=== PATIENT | male | born 1940 | race Asian ===

== ENCOUNTER 2016-08-19 01:09 | Emergency (ER) | payer MEDICARE ==
[~2016-08-19] VITALS: Ht 154.9 cm; Wt 60.3 kg
[~2016-08-19 01:09] MED LIST: AMOX500C2 PO; CLAR500T PO; METR500T PO; OMEP20CA10 PO
[2016-08-19 01:11] VITALS: BP 148/80; PULSE 78; RESP 13; TEMP 98.2; O2SAT 96
--- NOTE | 2016-08-19 01:11 | NUR ---
Patient to ER bed 5 to gown for evaluation. Side rails up. Report given to ALYSSA LEWIS.
--- NOTE | 2016-08-19 01:16 | NUR ---
Patient BIB via BLS accompanied by with a complaint of dizziness x 2 hours. Patient AAO x 4, with a slight language barrier but able to understand and speak German. Blood sugar 108 at this time. No acute distress or SOB noted. Denies n/v/d or headache. No complaints of pain or discomfort at the time of arrival at ER.
--- NOTE | 2016-08-19 02:24 | NUR ---
ER at bedside examining patient.
[2016-08-19 02:54] LABS: BASOPHILS % (AUTO) 0.6 % (0.0-2.0); EOSINOPHILS # (AUTO) 0.3 K/uL (0.0-0.4); EOSINOPHILS % (AUTO) 5.2 % (0.0-4.0); HEMATOCRIT 41.3 % (36-54); HEMOGLOBIN 14.1 g/dL (14.0-18.0); LYMPHOCYTES # (AUTO) 1.8 K/uL (1.0-5.5); LYMPHOCYTES % (AUTO) 31.5 % (20.5-51.5); MEAN CORPUSCULAR HEMOGLOBIN 33 pg (27-31); MEAN CORPUSCULAR HGB CONC 34 % (32-36); MEAN CORPUSCULAR VOLUME 96 fL (79.0-98.0); MONOCYTES # (AUTO) 0.5 K/uL (0.0-1.0); MONOCYTES % (AUTO) 8.1 % (1.7-9.3); NEUTROPHILS % (AUTO) 54.6 % (40.0-70.0); PLATELET COUNT (AUTO) 169 K/uL (130-430); RED BLOOD CELL COUNT(AUTO) 4.29 MIL/uL (4.2-6.2); RED CELL DISTRIBUTION WIDTH 12.2 % (9.0-15.0); WHITE BLOOD COUNT (AUTO) 5.6 K/uL (4.8-10.8)
[2016-08-19 03:04] LABS: CHLORIDE 109 mmol/L (98-107); GLUCOSE 119 mg/dL (70-99); POTASSIUM 3.7 mmol/L (3.5-5.1); SODIUM SERUM 139 mmol/L (136-145); UREA NITROGEN, BLOOD 19 mg/dL (8-21)
[2016-08-19 03:06] LABS: PROTHROMBIN TIME 10.7 SECS (9.5-12.5)
[2016-08-19 03:07] LABS: ANION GAP < 3 (5-15)
--- NOTE | 2016-08-19 03:10 | NUR ---
Called [employer] for the patient and .
[2016-08-19 03:11] LABS: ALANINE AMINOTRANSFERASE 24 U/L (12-78); ALBUMIN 3.5 g/dL (3.4-4.8); ASPARTATE AMINOTRANSFERASE 20 U/L (10-37); CREATINE KINASE, TOTAL 98 U/L (39-308); TOTAL BILIRUBIN 0.5 mg/dL (0.0-1.0)
[2016-08-19 03:20] VITALS: BP 148/80; PULSE 78; RESP 13; TEMP 98.2; O2SAT 96
--- NOTE | 2016-08-19 03:20 | NUR ---
Patient given written and verbal discharge instructions and verbalizes understanding. Patient in stable condition. No acute distress or SOB noted upon discharge. ID arm band removed. Opportunity for questions provided and answered.
== END 2016-08-19 03:20 | disposition home or self-care (01) ==
LOC: SED 01:09
DX: R07.9 Chest pain, unspecified (principal); R42 Dizziness and giddiness; J45.909 Unspecified asthma, uncomplicated; F03.90 Unspecified dementia, unspecified severity, without behavioral disturbance, psychotic disturbance, mood disturbance, and anxiety; K21.9 Gastro-esophageal reflux disease without esophagitis
CPT/HCPCS: 36415; 80053; 82550-TC; 82962; 84484; 85025; 85610-TC; 85730-TC; 93005; 99285

== ENCOUNTER 2017-04-17 01:43 | Emergency (ER) | payer MEDICARE ==
[~2017-04-17] VITALS: Ht 157.5 cm; Wt 59.0 kg
[2017-04-17 01:47] VITALS: BP_SYST 162
[2017-04-17 02:29] LABS: BILIRUBIN,URINE NEGATIVE (NEGATIVE); BLOOD, URINE NEGATIVE (NEGATIVE); CLARITY/URINE CLEAR (CLEAR); COLOR,URINE YELLOW (YELLOW); GLUCOSE,URINE NEGATIVE (NEGATIVE); KETONES,URINE NEGATIVE (NEGATIVE); LEUKOCYTE ESTERASE ,URINE NEGATIVE (NEGATIVE); NITRITE, URINE NEGATIVE (NEGATIVE); PROTEIN URINE NEGATIVE (NEGATIVE); UROBILINOGEN,URINE 0.2 (0.2-1.0)
[2017-04-17 02:43] LABS: BASOPHILS % (AUTO) 0.6 % (0.0-2.0); EOSINOPHILS # (AUTO) 0.4 K/uL (0.0-0.4); HEMATOCRIT 42.4 % (36-54); HEMOGLOBIN 14.2 g/dL (14.0-18.0); LYMPHOCYTES # (AUTO) 1.6 K/uL (1.0-5.5); LYMPHOCYTES % (AUTO) 27.3 % (20.5-51.5); MEAN CORPUSCULAR HEMOGLOBIN 33 pg (27-31); MEAN CORPUSCULAR HGB CONC 33 % (32-36); MEAN CORPUSCULAR VOLUME 98 fL (79.0-98.0); MONOCYTES # (AUTO) 0.6 K/uL (0.0-1.0); MONOCYTES % (AUTO) 9.4 % (1.7-9.3); NEUTROPHILS # (AUTO) 3.3 K/uL (1.8-7.7); NEUTROPHILS % (AUTO) 55.7 % (40.0-70.0); PLATELET COUNT (AUTO) 161 K/uL (130-430); RED BLOOD CELL COUNT(AUTO) 4.33 MIL/uL (4.2-6.2); RED CELL DISTRIBUTION WIDTH 12.2 % (9.0-15.0); WHITE BLOOD COUNT (AUTO) 5.9 K/uL (4.8-10.8)
[2017-04-17 02:53] LABS: ANION GAP 5 (5-15); CHLORIDE 104 mmol/L (98-107); CREATININE 0.87 mg/dL (0.55-1.30); GLUCOSE 110 mg/dL (70-99); POTASSIUM 4.1 mmol/L (3.5-5.1); SODIUM SERUM 138 mmol/L (136-145); UREA NITROGEN, BLOOD 17 mg/dL (8-21)
[2017-04-17 02:55] LABS: PROTHROMBIN TIME 10.2 SECS (9.5-12.5)
[2017-04-17 02:58] LABS: ALANINE AMINOTRANSFERASE 31 U/L (12-78); ALBUMIN 3.6 g/dL (3.4-4.8); ASPARTATE AMINOTRANSFERASE 24 U/L (10-37); LIPASE 175 U/L (73-393); TOTAL BILIRUBIN 0.6 mg/dL (0.0-1.0)
[2017-04-17] MEDS ORDERED: ASPIRIN 81 MG TAB.CHEW PO ONE (04:00)
[2017-04-17 05:10] VITALS: BP_SYST 158
== END 2017-04-17 05:10 | disposition short-term general hospital (02) ==
LOC: SED 01:43
DX: R07.89 Other chest pain (principal); K21.9 Gastro-esophageal reflux disease without esophagitis; F03.90 Unspecified dementia, unspecified severity, without behavioral disturbance, psychotic disturbance, mood disturbance, and anxiety
CPT/HCPCS: 36415; 71010; 80053; 81003; 83690-TC; 83880; 84484; 85025; 85610-TC; 85730-TC; 93005; 99285

== ENCOUNTER 2017-11-30 01:39 | Emergency (ER) | payer MEDICARE ==
[~2017-11-30] VITALS: Ht 157.5 cm; Wt 55.3 kg
[2017-11-30 01:40] VITALS: BP_SYST 137
--- NOTE | 2017-11-30 01:40 | NUR ---
Patient to ER bed 4 to gown for evaluation. Side rails up.
--- NOTE | 2017-11-30 01:42 | NUR ---
ER MD Garcia at bedside evaluating the patient
[2017-11-30] MEDS ORDERED: PREDNISONE 20 MG TABLET PO ONE (01:45)
[2017-11-30] MEDS ORDERED: DIPHENHYDRAMINE HCL 25 MG CAPSULE PO ONE (01:45)
--- NOTE | 2017-11-30 01:45 | NUR ---
Patient brought to ER by [facility] ambulance from home C/O nasal congestion. Patient states that he woke up with severe nasal congestion. Per EMT on route, patient C/O pruritus on chest and back. Patient noted to have perioral swelling. Patient denies allergies, states "nothing to eat or drink anusual" AAOx4, unlabored breathing, no skin rash noted, no signs of acute distress.
--- NOTE | 2017-11-30 02:43 | NUR ---
Patient states that he feels much better, noted reduction in perioral swelling and minimal pruritus at this time.
[2017-11-30 03:09] VITALS: BP_SYST 130
== END 2017-11-30 03:09 | disposition home or self-care (01) ==
LOC: SED 01:39
DX: T78.40XA Allergy, unspecified, initial encounter (principal); J45.909 Unspecified asthma, uncomplicated; F03.90 Unspecified dementia, unspecified severity, without behavioral disturbance, psychotic disturbance, mood disturbance, and anxiety; K21.9 Gastro-esophageal reflux disease without esophagitis; Z79.899 Other long term (current) drug therapy
CPT/HCPCS: 99283; J7512; Q0163

== ENCOUNTER 2017-12-20 03:38 | Emergency (ER) | payer MEDICARE ==
[~2017-12-20] VITALS: Ht 154.9 cm; Wt 56.2 kg
[2017-12-20 03:40] VITALS: BP_SYST 146
--- NOTE | 2017-12-20 03:40 | NUR ---
Placed in room 8 . Placed on awake overnight monitor, blood pressure machine and pulse oximeter. To gown for exam. Side rails up.
--- NOTE | 2017-12-20 03:40 | NUR ---
Patient AAOx4, ambulatory. Patient states having a main complaint of sudden onset of diziness which started "earlier this morning" but has since subsided. Patient states having a mild headache prior to ER visit, which has also been resolved at this time. Patient denies shortness of breath, chest pain, loss of consciousness, and pain at this time. No signs of distress noted. Patient was able to ambulate with a steady gait and without assistance. Patient denies any other complaints.
--- NOTE | 2017-12-20 03:56 | NUR ---
ER Dr. Kuo at bedside examining patient.
[2017-12-20 04:50] VITALS: BP_SYST 140
--- NOTE | 2017-12-20 04:50 | NUR ---
Patient given written and verbal discharge instructions and verbalizes understanding. ER MD discussed with patient the results and treatment provided. Patient in stable condition. ID arm band removed. Patient educated on pain management and to follow up with PMD. Pain Scale 0/10. Opportunity for questions provided and answered.
== END 2017-12-20 03:40 | disposition home or self-care (01) ==
LOC: SED 03:38
DX: R42 Dizziness and giddiness (principal); J45.909 Unspecified asthma, uncomplicated; F03.90 Unspecified dementia, unspecified severity, without behavioral disturbance, psychotic disturbance, mood disturbance, and anxiety; K21.9 Gastro-esophageal reflux disease without esophagitis; Z79.899 Other long term (current) drug therapy
CPT/HCPCS: 99283

== ENCOUNTER 2018-02-28 00:50 | Emergency (ER) | payer MEDICARE ==
[~2018-02-28] VITALS: Ht 154.9 cm; Wt 59.9 kg
[2018-02-28 00:50] VITALS: BP_SYST 147
[2018-02-28] MEDS ORDERED: NACL 0.9% 1,000 ML IV ONE (00:57)
[2018-02-28] MEDS ORDERED: ASPIRIN 81 MG TAB.CHEW PO ONE (01:00)
[2018-02-28 01:41] LABS: BASOPHILS % (AUTO) 0.9 % (0.0-2.0); EOSINOPHILS # (AUTO) 0.6 K/uL (0.0-0.4); EOSINOPHILS % (AUTO) 10.1 % (0.0-4.0); HEMOGLOBIN 14.5 g/dL (14.0-18.0); LYMPHOCYTES % (AUTO) 36.1 % (20.5-51.5); MEAN CORPUSCULAR HEMOGLOBIN 32 pg (27-31); MEAN CORPUSCULAR HGB CONC 33 % (32-36); MEAN CORPUSCULAR VOLUME 98 fL (79.0-98.0); MONOCYTES # (AUTO) 0.5 K/uL (0.0-1.0); MONOCYTES % (AUTO) 8.7 % (1.7-9.3); NEUTROPHILS # (AUTO) 2.4 K/uL (1.8-7.7); NEUTROPHILS % (AUTO) 44.2 % (40.0-70.0); PLATELET COUNT (AUTO) 202 K/uL (130-430); RED CELL DISTRIBUTION WIDTH 13.1 % (9.0-15.0); WHITE BLOOD COUNT (AUTO) 5.5 K/uL (4.8-10.8)
[2018-02-28 01:44] LABS: ANION GAP 7 (5-15); CALCIUM 8.7 mg/dL (8.4-11.0); CHLORIDE 105 mmol/L (98-107); CREATININE 0.97 mg/dL (0.55-1.30); GLUCOSE 112 mg/dL (70-99); POTASSIUM 3.8 mmol/L (3.5-5.1); SODIUM SERUM 142 mmol/L (136-145); UREA NITROGEN, BLOOD 15 mg/dL (8-21)
[2018-02-28 01:52] LABS: ALANINE AMINOTRANSFERASE 41 U/L (12-78); ALBUMIN 3.4 g/dL (3.4-4.8); ASPARTATE AMINOTRANSFERASE 64 U/L (10-37); TOTAL BILIRUBIN 0.4 mg/dL (0.0-1.0)
[2018-02-28 06:10] VITALS: BP_SYST 148
== END 2018-02-28 06:08 | disposition home or self-care (01) ==
LOC: SED 00:50
DX: R09.81 Nasal congestion (principal); R05 Cough; K21.9 Gastro-esophageal reflux disease without esophagitis; J45.909 Unspecified asthma, uncomplicated; F03.90 Unspecified dementia, unspecified severity, without behavioral disturbance, psychotic disturbance, mood disturbance, and anxiety; Z79.899 Other long term (current) drug therapy; R03.0 Elevated blood-pressure reading, without diagnosis of hypertension
CPT/HCPCS: 36415; 71045; 80053; 84484; 85025; 85379; 93005; 99285; J7030

== ENCOUNTER 2018-03-27 02:45 | Emergency (ER) | payer MEDICARE ==
[~2018-03-27] VITALS: Ht 154.9 cm; Wt 56.2 kg
[2018-03-27 02:45] VITALS: BP_SYST 157
[2018-03-27] MEDS ORDERED: ASPIRIN 81 MG TAB.CHEW PO ONE (03:00)
--- NOTE | 2018-03-27 03:00 | NUR ---
Patient to ER bed 6 to gown for evaluation. Side rails up. Report given from ALYSSA Nicholson.
--- NOTE | 2018-03-27 03:20 | NUR ---
Patient came into the ED for chest pain and generalized weakness. Pt says that he was walking and then he felt weak and dizzy, asked his to call 911. He says that he felt chest discomfort but only when coughing. Denies nausea, vomitting, diarrhea. No fever/chills. No other complaints/injuries noted.
[2018-03-27 03:25] LABS: HEMATOCRIT 42.9 % (36-54); HEMOGLOBIN 14.4 g/dL (14.0-18.0); MEAN CORPUSCULAR HEMOGLOBIN 33 pg (27-31); MEAN CORPUSCULAR HGB CONC 34 % (32-36); MEAN CORPUSCULAR VOLUME 98 fL (79.0-98.0); PLATELET COUNT (AUTO) 222 K/uL (130-430); RED CELL DISTRIBUTION WIDTH 12.1 % (9.0-15.0); WHITE BLOOD COUNT (AUTO) 6.3 K/uL (4.8-10.8)
--- NOTE | 2018-03-27 03:25 | NUR ---
ER at bedside examining patient.
[2018-03-27 03:29] LABS: ANION GAP 5 (5-15); CALCIUM 8.7 mg/dL (8.4-11.0); CHLORIDE 103 mmol/L (98-107); CREATININE 1.05 mg/dL (0.55-1.30); GLUCOSE 104 mg/dL (70-99); POTASSIUM 4.1 mmol/L (3.5-5.1); SODIUM SERUM 137 mmol/L (136-145); UREA NITROGEN, BLOOD 21 mg/dL (8-21)
--- NOTE | 2018-03-27 03:29 | NUR ---
pt medicated with ASA per MD order. Tolterated well. Will cont. to monitor.
[2018-03-27 03:31] LABS: PROTHROMBIN TIME 9.9 SECS (9.5-12.5)
[2018-03-27 03:34] LABS: ALANINE AMINOTRANSFERASE 53 U/L (12-78); ALBUMIN 3.5 g/dL (3.4-4.8); ASPARTATE AMINOTRANSFERASE 31 U/L (10-37); TOTAL BILIRUBIN 0.4 mg/dL (0.0-1.0)
--- NOTE | 2018-03-27 03:45 | NUR ---
Hyacinth goodrich in ED - 03/27/18 at 0653 by [id number] ORQUIDEA Paris at bedside examining patient.
[2018-03-27 03:56] LABS: BASOPHILS % (MANUAL) 0 % (0-2); EOSINOPHILS % (MANUAL) 7 % (0-7); LYMPHOCYTES % (MANUAL) 35 % (20-46); MONOCYTES % (MANUAL) 9 % (0-11)
[2018-03-27] MEDS ORDERED: NACL 0.9% 1,000 ML IV ONE (04:00)
--- NOTE | 2018-03-27 05:01 | NUR ---
Patient given written and verbal discharge instructions and verbalizes understanding. ER MD Dr. Escobar discussed with patient the results and treatment provided. Patient in stable condition. ID arm band removed. IV catheter removed intact and dressing applied, no active bleeding. Patient educated on pain management and to follow up with PMD within 2-3 days. Pain Scale 0/10. Opportunity for questions provided and answered. Medication side effect fact sheet provided.
[2018-03-27 06:39] VITALS: BP_SYST 157
== END 2018-03-27 07:01 | disposition home or self-care (01) ==
LOC: SED 02:45
DX: E86.0 Dehydration (principal); R53.83 Other fatigue; J45.909 Unspecified asthma, uncomplicated; K21.9 Gastro-esophageal reflux disease without esophagitis; F03.90 Unspecified dementia, unspecified severity, without behavioral disturbance, psychotic disturbance, mood disturbance, and anxiety; Z79.899 Other long term (current) drug therapy
CPT/HCPCS: 36415; 71045; 80053; 82550; 83880; 84484; 85007; 85027; 85610; 93005; 96360; 99284; J7030

== ENCOUNTER 2018-07-17 04:05 | Emergency (ER) | payer MEDICARE ==
[~2018-07-17] VITALS: Ht 162.6 cm; Wt 55.3 kg
--- NOTE | 2018-07-17 04:14 | NUR ---
Patient to ER bed 2 to gown for evaluation. Side rails up.
[2018-07-17 04:15] VITALS: BP_SYST 152
--- NOTE | 2018-07-17 04:38 | NUR ---
ER at bedside examining patient.
[2018-07-17] MEDS ORDERED: KETOROLAC TROMETHAMINE 60 MG/2 ML VIAL IM ONE (04:45)
--- NOTE | 2018-07-17 05:01 | NUR ---
Pt medicated with Toradol IM per MD order. Tolerated well. Will cont. to monitor.
--- NOTE | 2018-07-17 06:16 | NUR ---
Pt resting comfortably in bed. No signs of acute distress. Will cont. to monitor.
--- NOTE | 2018-07-17 06:58 | NUR ---
When discharging pt, asked pt if he is still in pain. Pt states, "Pain is still there." ORQUIDEA VÁZQUEZ made aware
[2018-07-17] MEDS ORDERED: MORPHINE 4 MG/ML INJ. SYRINGE IM ONE (07:15)
--- NOTE | 2018-07-17 07:18 | NUR ---
Pt medicated with morphine IM per MD order. Tolerated well. Will cont. to monitor.
--- NOTE | 2018-07-17 07:18 | NUR ---
Report given to ALYSSA Martin
--- NOTE | 2018-07-17 07:30 | NUR ---
[employer] called cab service for Patient and .
[2018-07-17 08:00] VITALS: BP_SYST 158
--- NOTE | 2018-07-17 08:00 | NUR ---
Patient given written and verbal discharge instructions and verbalizes understanding. ER MD discussed with patient the results and treatment provided. Patient in stable condition. ID arm band removed. Rx of Naprosyn given. Patient educated on pain management and to follow up with PMD. Pain Scale 0/10. Opportunity for questions provided and answered. Medication side effect fact sheet provided. Cab service transportedfrom [facility] exit.
== END 2018-07-17 08:00 | disposition home or self-care (01) ==
LOC: SED 04:05
DX: S33.9XXA Sprain of unspecified parts of lumbar spine and pelvis, initial encounter (principal); J45.909 Unspecified asthma, uncomplicated; F03.90 Unspecified dementia, unspecified severity, without behavioral disturbance, psychotic disturbance, mood disturbance, and anxiety; K21.9 Gastro-esophageal reflux disease without esophagitis; Z79.899 Other long term (current) drug therapy; X58.XXXA Exposure to other specified factors, initial encounter; Y93.89 Activity, other specified; Y92.89 Other specified places as the place of occurrence of the external cause; Y99.8 Other external cause status
CPT/HCPCS: 96372; 99283; J1885; J2270

== ENCOUNTER 2018-07-23 02:13 | Emergency (ER) | payer MEDICARE ==
[~2018-07-23] VITALS: Ht 162.6 cm; Wt 55.3 kg
[2018-07-23 02:50] VITALS: BP_SYST 153
--- NOTE | 2018-07-23 03:12 | NUR ---
0312 - Assumed care of pt. Pt here for back pain. Has frequent visits for same. States he was seen at [place] recently for same issue, and had no change in symptoms. A&OX4. Resp even and unlabored.
--- NOTE | 2018-07-23 04:15 | NUR ---
0415 - Pt states he feels better and feels like he is able to go home. Pt states he was given RX for tylenol to be taken q6 hrs PRN. Pt states he took only 1 dose yesterday. Pt re-educated about frequency and PRN usage. Pt verbalizes understanding.
[2018-07-23] MEDS ORDERED: METHOCARBAMOL 1000 MG/10 ML VIAL IM ONE (04:45)
[2018-07-23] MEDS ORDERED: ACETAMINOPHEN 325 MG TABLET PO ONE (04:45)
--- NOTE | 2018-07-23 04:45 | NUR ---
0445 - ER at bedside examining patient.
[2018-07-23] MEDS ORDERED: METHOCARBAMOL 500 MG TABLET PO ONE (05:30)
[2018-07-23] MEDS ORDERED: KETOROLAC TROMETHAMINE 15 MG VIAL IM ONE (06:00)
--- NOTE | 2018-07-23 06:14 | NUR ---
0614 - Patient given written and verbal discharge instructions and verbalizes understanding. ER MD discussed with patient the results and treatment provided. Patient in stable condition. ID arm band removed. Patient educated on pain management and to follow up with PMD. Pain Scale 5. Opportunity for questions provided and answered. Medication side effect fact sheet provided. A&OX4, ambulatory w/ steady gait
[2018-07-23 06:22] VITALS: BP_SYST 137
== END 2018-07-23 06:22 | disposition home or self-care (01) ==
LOC: SED 02:13
DX: G89.29 Other chronic pain (principal); M54.5 Low back pain; J45.909 Unspecified asthma, uncomplicated; F03.90 Unspecified dementia, unspecified severity, without behavioral disturbance, psychotic disturbance, mood disturbance, and anxiety; K21.9 Gastro-esophageal reflux disease without esophagitis; Z79.899 Other long term (current) drug therapy
CPT/HCPCS: 96372; 99283; J1885

== ENCOUNTER 2018-08-01 03:07 | Emergency (ER) | payer MEDICARE ==
[~2018-08-01] VITALS: Ht 162.6 cm; Wt 55.3 kg
[2018-08-01 03:15] VITALS: BP_SYST 142
[2018-08-01] MEDS ORDERED: KETOROLAC TROMETHAMINE 30 MG VIAL IM ONE (04:00)
[2018-08-01] MEDS ORDERED: ACETAMINOPHEN 500 MG TABLET PO ONE (04:00)
[2018-08-01 06:30] VITALS: BP_SYST 142
== END 2018-08-01 06:30 | disposition home or self-care (01) ==
LOC: SED 03:07
DX: G89.29 Other chronic pain (principal); M54.5 Low back pain; K21.9 Gastro-esophageal reflux disease without esophagitis; F03.90 Unspecified dementia, unspecified severity, without behavioral disturbance, psychotic disturbance, mood disturbance, and anxiety; J45.909 Unspecified asthma, uncomplicated; Z79.899 Other long term (current) drug therapy
CPT/HCPCS: 96372; 99283; J1885

== ENCOUNTER 2019-01-17 20:10 | Emergency (ER) | payer MEDICARE ==
[~2019-01-17] VITALS: Ht 154.9 cm; Wt 54.9 kg
[2019-01-17 20:30] VITALS: BP_SYST 92
--- NOTE | 2019-01-17 20:37 | NUR ---
Patient triaged and placed in waiting room. VSS and patient appears in no acute distress at this time. Accompanied by , awaiting available bed, and MD notified of need for MSE.
--- NOTE | 2019-01-17 22:10 | NUR ---
Patient to ER bed 1 to gown for evaluation. Side rails up. Report given to ALYSSA Colin.
--- NOTE | 2019-01-17 22:12 | NUR ---
Patient brought in complaining of head pain today with bleeding. Reports he was bending over tonight trying to lift a bag of rice and hit the top of his head on the corner of a table. Denies any pain. No other complaints/injuries per patient or as noted. Will continue to monitor
--- NOTE | 2019-01-17 22:23 | NUR ---
ER Dr. Abrams at bedside examining patient.
[2019-01-17] MEDS ORDERED: BACITRACIN 1 GM OINT TP ONE ×2 (22:30→22:45)
[2019-01-17 22:44] VITALS: BP_SYST 101
--- NOTE | 2019-01-17 22:44 | NUR ---
Patient given written and verbal discharge instructions and verbalizes understanding. ER MD discussed with patient the results and treatment provided. Patient in stable condition. ID arm band removed. No Rx given. Patient educated on pain management and to follow up with PMD. Pain Scale 0. Opportunity for questions provided and answered. Medication side effect fact sheet provided.
== END 2019-01-17 22:44 | disposition home or self-care (01) ==
LOC: SED 20:10
DX: S09.90XA Unspecified injury of head, initial encounter (principal); K21.9 Gastro-esophageal reflux disease without esophagitis; F03.90 Unspecified dementia, unspecified severity, without behavioral disturbance, psychotic disturbance, mood disturbance, and anxiety; J45.909 Unspecified asthma, uncomplicated; Z79.899 Other long term (current) drug therapy; W22.8XXA Striking against or struck by other objects, initial encounter; Y93.89 Activity, other specified; Y92.89 Other specified places as the place of occurrence of the external cause; Y99.8 Other external cause status
CPT/HCPCS: 70450-TC; 99284

== ENCOUNTER 2019-05-07 13:59 | Emergency (ER) | payer MEDICARE ==
[~2019-05-07] VITALS: Ht 149.9 cm; Wt 64.4 kg
[~2019-05-07 13:59] MED LIST changes: -OMEP20CA10 PO; +OMEP20CA11 PO
--- NOTE | 2019-05-07 13:59 | NUR ---
ER at bedside examining patient.
--- NOTE | 2019-05-07 14:05 | NUR ---
Patient to ER bed 4 to gown for evaluation. Side rails up. Report given to Jose SHAH.
[2019-05-07 14:08] VITALS: BP_SYST 143
--- NOTE | 2019-05-07 14:08 | NUR ---
RN meets pt . pt is stable and oriented x 3. Report is he was wandering near his home and staggering a bit. PD did not want to place of 5150. pt is not SI and pt is stable on VS and stable on orientation.
[2019-05-07 14:32] LABS: BASOPHILS # (AUTO) 0.1 K/uL (0.0-0.2); BASOPHILS % (AUTO) 0.8 % (0.0-2.0); EOSINOPHILS # (AUTO) 0.5 K/uL (0.0-0.4); EOSINOPHILS % (AUTO) 7.8 % (0.0-4.0); HEMATOCRIT 41.9 % (36-54); HEMOGLOBIN 14.1 g/dL (14.0-18.0); LYMPHOCYTES # (AUTO) 1.4 K/uL (1.0-5.5); LYMPHOCYTES % (AUTO) 20.8 % (20.5-51.5); MEAN CORPUSCULAR HEMOGLOBIN 33 pg (27-31); MEAN CORPUSCULAR HGB CONC 34 % (32-36); MEAN CORPUSCULAR VOLUME 98 fL (79.0-98.0); MONOCYTES # (AUTO) 0.4 K/uL (0.0-1.0); MONOCYTES % (AUTO) 6.3 % (1.7-9.3); NEUTROPHILS # (AUTO) 4.4 K/uL (1.8-7.7); NEUTROPHILS % (AUTO) 64.3 % (40.0-70.0); PLATELET COUNT (AUTO) 184 K/uL (130-430); RED BLOOD CELL COUNT(AUTO) 4.26 MIL/uL (4.2-6.2); RED CELL DISTRIBUTION WIDTH 13.6 % (9.0-15.0); WHITE BLOOD COUNT (AUTO) 6.8 K/uL (4.8-10.8)
[2019-05-07 14:53] LABS: ANION GAP 6 (5-15); CALCIUM 8.9 mg/dL (8.4-11.0); CHLORIDE 105 mmol/L (98-107); CREATININE 1.01 mg/dL (0.55-1.30); GLUCOSE 100 mg/dL (70-99); POTASSIUM 3.9 mmol/L (3.5-5.1); SODIUM SERUM 140 mmol/L (136-145); UREA NITROGEN, BLOOD 20 mg/dL (8-21)
[2019-05-07 14:58] LABS: ALANINE AMINOTRANSFERASE 26 U/L (12-78); ALBUMIN 3.9 g/dL (3.4-4.8); ASPARTATE AMINOTRANSFERASE 11 U/L (10-37); CHOLESTEROL 233 mg/dL (<200); HDL CHOLESTEROL 44 mg/dL (>45); LDL CHOLESTEROL 151 mg/dL (<100); LIPASE 207 U/L (73-393); TOTAL BILIRUBIN 0.4 mg/dL (0.0-1.0); TRIGLYCERIDES 283 mg/dL (30-150)
[2019-05-07 14:59] LABS: ALCOHOL, BLOOD < 3 mg/dL (<10)
[2019-05-07 15:11] LABS: ACETAMINOPHEN < 1 ug/mL (1-30)
--- NOTE | 2019-05-07 15:15 | NUR ---
Labs are back and pt may go home with MD order. pt continues to be stable and in good spirits.
[2019-05-07 15:49] LABS: PROTHROMBIN TIME 9.8 SECS (9.5-12.5)
[2019-05-07 15:55] VITALS: BP_SYST 136
--- NOTE | 2019-05-07 16:01 | NUR ---
Patient given written and verbal discharge instructions and verbalizes understanding. ER MD discussed with patient the results and treatment provided. Patient in stable condition. ID arm band removed. IV catheter removed intact and dressing applied, no active bleeding. . Patient educated on pain management and to follow up with PMD. Pain Scale . Opportunity for questions provided and answered. Medication side effect fact sheet provided. pt is picked up by his and his 's neighbor.
--- NOTE | 2019-05-07 16:02 | NUR ---
RN notes and pt has been picked up by their neighbor who is taking care of them.
== END 2019-05-07 16:01 | disposition home or self-care (01) ==
LOC: SED 13:59
DX: F03.90 Unspecified dementia, unspecified severity, without behavioral disturbance, psychotic disturbance, mood disturbance, and anxiety (principal); K21.9 Gastro-esophageal reflux disease without esophagitis; J45.909 Unspecified asthma, uncomplicated; Z79.899 Other long term (current) drug therapy; W18.39XA Other fall on same level, initial encounter; Y93.89 Activity, other specified; Y92.89 Other specified places as the place of occurrence of the external cause; Y99.8 Other external cause status
CPT/HCPCS: 36415; 70450; 71045; 80053; 80061; 82550; 83036; 83690; 84484; 85025; 85610; 85730; 99284; G0480; G0481; G0482

== ENCOUNTER 2020-03-15 05:11 | Emergency (ER) | payer MEDICARE, SELFPAY ==
[~2020-03-15] VITALS: Ht 154.9 cm; Wt 54.4 kg
[~2020-03-15 05:11] MED LIST changes: -OMEP20CA11 PO; +OMEP20CA15 PO
[2020-03-15 05:14] VITALS: BP_SYST 161
--- NOTE | 2020-03-15 05:14 | NUR ---
Patient to ER bed 5 to gown for evaluation. Side rails up.
--- NOTE | 2020-03-15 05:14 | NUR ---
PT A&O X4 FROM HOME C/O OF WAKING UP FROM SLEEP WITH DIFFICULTY BREATHING AIR IN DUE TO A CONGESTED NOSE. BY THE TIME [employer]PONDERS ARRIVED, SYMPTOMS SUBSIDED. PT 99% ON ROOM AIR. PT HX OF ASTHMA.
--- NOTE | 2020-03-15 05:14 | NUR ---
ER Dr. LIU at bedside examining patient.
--- NOTE | 2020-03-15 05:47 | NUR ---
RADIOLOGY AT BEDSIDE FOR CHEST XRAY.
--- NOTE | 2020-03-15 05:56 | NUR ---
LAB AT BEDSIDE FOR BLOOD DRAW.
[2020-03-15 06:00] LABS: BASOPHILS # (AUTO) 0.1 K/uL (0.0-0.2); BASOPHILS % (AUTO) 1.6 % (0.0-2.0); EOSINOPHILS # (AUTO) 0.6 K/uL (0.0-0.4); EOSINOPHILS % (AUTO) 11.5 % (0.0-4.0); HEMATOCRIT 40.2 % (36-54); HEMOGLOBIN 13.7 g/dL (14.0-18.0); LYMPHOCYTES # (AUTO) 1.5 K/uL (1.0-5.5); LYMPHOCYTES % (AUTO) 29.2 % (20.5-51.5); MEAN CORPUSCULAR HEMOGLOBIN 33 pg (27-31); MEAN CORPUSCULAR HGB CONC 34 % (32-36); MEAN CORPUSCULAR VOLUME 97 fL (79.0-98.0); MONOCYTES # (AUTO) 0.4 K/uL (0.0-1.0); MONOCYTES % (AUTO) 8.5 % (1.7-9.3); NEUTROPHILS # (AUTO) 2.5 K/uL (1.8-7.7); NEUTROPHILS % (AUTO) 49.2 % (40.0-70.0); PLATELET COUNT (AUTO) 173 K/uL (130-430); RED BLOOD CELL COUNT(AUTO) 4.16 MIL/uL (4.2-6.2)
[2020-03-15 06:22] LABS: ANION GAP 4 (5-15); CALCIUM 8.3 mg/dL (8.4-11.0); CHLORIDE 104 mmol/L (98-107); CREATININE 0.87 mg/dL (0.55-1.30); GLUCOSE 112 mg/dL (70-99); POTASSIUM 3.5 mmol/L (3.5-5.1); SODIUM SERUM 138 mmol/L (136-145); UREA NITROGEN, BLOOD 15 mg/dL (8-21)
[2020-03-15 06:28] LABS: ALANINE AMINOTRANSFERASE 22 U/L (12-78); ALBUMIN 3.5 g/dL (3.4-4.8); ASPARTATE AMINOTRANSFERASE 20 U/L (10-37); TOTAL BILIRUBIN 0.4 mg/dL (0.0-1.0)
--- NOTE | 2020-03-15 06:34 | NUR ---
SPOKE WITH ALMAZ, PATIENTS , WHO IS GOING TO COME PICK PATIENT UP FROM HOSPITAL.
--- NOTE | 2020-03-15 06:38 | NUR ---
COVID SWAB COLLECTED AND SENT TO LAB.
--- NOTE | 2020-03-15 06:43 | NUR ---
PATIENT AMBULATED TO RESTROOM WITH STEADY GAIT.
[2020-03-15 07:31] VITALS: BP_SYST 145
--- NOTE | 2020-03-15 07:31 | NUR ---
Patient given written and verbal discharge instructions and verbalizes understanding. ER MD discussed with patient the results and treatment provided. Patient in stable condition. ID arm band removed. NO Rx given. Patient educated on pain management and to follow up with PMD. Pain Scale 0/10. Opportunity for questions provided and answered. Medication side effect fact sheet provided.
== END 2020-03-15 07:31 | disposition home or self-care (01) ==
LOC: SED 05:11
DX: J06.9 Acute upper respiratory infection, unspecified (principal); J45.909 Unspecified asthma, uncomplicated; K21.9 Gastro-esophageal reflux disease without esophagitis; Z79.899 Other long term (current) drug therapy; Z20.828 Contact with and (suspected) exposure to other viral communicable diseases
CPT/HCPCS: 36415; 71045; 80053; 85025; 99284; C9803; U0003

== ENCOUNTER 2020-06-16 06:53 | Emergency (ER) | payer MEDICARE, SELFPAY ==
[~2020-06-16] VITALS: Ht 157.5 cm; Wt 59.0 kg
--- NOTE | 2020-06-16 07:00 | NUR ---
Placed in room 6 . Placed on straw hat presser, blood pressure machine and pulse oximeter. To gown for exam. Side rails up.
[2020-06-16 07:02] VITALS: BP_SYST 157
--- NOTE | 2020-06-16 07:10 | NUR ---
PT BIBA FROM HOME AFTER FALLING FROM HIS BED. PT IS A POOR HISTORIAN BUT SAYS HE FELL FROM BED. NO INJURIES NOTED UPON ARRIVAL. PER EMS NO KO. V/S STABLE. PT IS CONFUSED AAOX2
--- NOTE | 2020-06-16 07:12 | NUR ---
PT PT HX HE HAS DEMENTIA, ASTHMA AND GERD
--- NOTE | 2020-06-16 07:15 | NUR ---
ER DR. CANTOR AT THE BEDSIDE EVALUATING PT
--- NOTE | 2020-06-16 07:33 | NUR ---
Patient transported to radiology via GURNEY, accompanied by STAFF.
--- NOTE | 2020-06-16 07:45 | NUR ---
ER DR. HUFFMAN AT THE BEDSIDE EVALUATING PT
--- NOTE | 2020-06-16 08:30 | NUR ---
PT RESTING IN BED, NOS/SX OF DISTRESS, V/S STABLE
[2020-06-16 09:21] VITALS: BP_SYST 138
--- NOTE | 2020-06-16 09:21 | NUR ---
Patient given written and verbal discharge instructions and verbalizes understanding. ER MD discussed with patient the results and treatment provided. Patient in stable condition. ID arm band removed. Patient educated on pain management and to follow up with PMD. Pain Scale 0/10. Opportunity for questions provided and answered. Medication side effect fact sheet provided.
== END 2020-06-16 09:21 | disposition home or self-care (01) ==
LOC: SED 06:53
DX: S00.83XA Contusion of other part of head, initial encounter (principal); J45.909 Unspecified asthma, uncomplicated; K21.9 Gastro-esophageal reflux disease without esophagitis; Z79.899 Other long term (current) drug therapy; W06.XXXA Fall from bed, initial encounter; Y93.89 Activity, other specified; Y92.89 Other specified places as the place of occurrence of the external cause; Y99.8 Other external cause status
CPT/HCPCS: 70450-TC; 72125-TC; 76376; 99285

== ENCOUNTER 2020-06-20 11:14 | Emergency (ER) | payer MEDICARE, SELFPAY ==
[2020-06-20 11:21] VITALS: BP_SYST 134
[2020-06-20 12:23] LABS: BASOPHILS % (AUTO) 0.4 % (0.0-2.0); EOSINOPHILS # (AUTO) 0.7 K/uL (0.0-0.4); EOSINOPHILS % (AUTO) 13.8 % (0.0-4.0); HEMATOCRIT 36.2 % (36-54); HEMOGLOBIN 12.2 g/dL (14.0-18.0); LYMPHOCYTES # (AUTO) 0.9 K/uL (1.0-5.5); LYMPHOCYTES % (AUTO) 16.4 % (20.5-51.5); MEAN CORPUSCULAR HEMOGLOBIN 32 pg (27-31); MEAN CORPUSCULAR HGB CONC 34 % (32-36); MEAN CORPUSCULAR VOLUME 96 fL (79.0-98.0); MONOCYTES # (AUTO) 0.7 K/uL (0.0-1.0); MONOCYTES % (AUTO) 12.2 % (1.7-9.3); NEUTROPHILS # (AUTO) 3.1 K/uL (1.8-7.7); NEUTROPHILS % (AUTO) 57.2 % (40.0-70.0); PLATELET COUNT (AUTO) 143 K/uL (130-430); RED BLOOD CELL COUNT(AUTO) 3.79 MIL/uL (4.2-6.2); RED CELL DISTRIBUTION WIDTH 13.1 % (9.0-15.0); WHITE BLOOD COUNT (AUTO) 5.4 K/uL (4.8-10.8)
[2020-06-20 12:36] LABS: ANION GAP 5 (5-15); CALCIUM 8.8 mg/dL (8.4-11.0); CHLORIDE 104 mmol/L (98-107); CREATININE 1.09 mg/dL (0.55-1.30); GLUCOSE 95 mg/dL (70-99); POTASSIUM 4.3 mmol/L (3.5-5.1); SODIUM SERUM 141 mmol/L (136-145); UREA NITROGEN, BLOOD 12 mg/dL (8-21)
[2020-06-20] MEDS: LORazepam 2 MG/ML VIAL IM ONE (12:41)
[2020-06-20] MEDS: HALOPERIDOL LACTATE 5 MG/ML VIAL IM ONE (12:42)
[2020-06-20] MEDS: DIPHENHYDRAMINE INJ 50 MG/ML VIAL IM ONE (12:42)
[2020-06-20 12:44] LABS: ALANINE AMINOTRANSFERASE 32 U/L (12-78); ALBUMIN 2.8 g/dL (3.4-4.8); ASPARTATE AMINOTRANSFERASE 37 U/L (10-37); TOTAL BILIRUBIN 0.2 mg/dL (0.0-1.0)
[2020-06-20 16:04] VITALS: BP_SYST 155
== END 2020-06-20 16:04 | disposition home or self-care (01) ==
LOC: SED 11:14
DX: F03.90 Unspecified dementia, unspecified severity, without behavioral disturbance, psychotic disturbance, mood disturbance, and anxiety (principal); J45.909 Unspecified asthma, uncomplicated; K21.9 Gastro-esophageal reflux disease without esophagitis; Z79.899 Other long term (current) drug therapy
CPT/HCPCS: 36415; 80053; 85025; 96372; 99284

== ENCOUNTER 2020-06-22 16:28 | Emergency (ER) | payer MEDICARE ==
[~2020-06-22] VITALS: Ht 162.6 cm; Wt 72.6 kg
[2020-06-22 16:33] VITALS: BP_SYST 127
[2020-06-22 17:06] LABS: BASOPHILS % (AUTO) 0.5 % (0.0-2.0); EOSINOPHILS # (AUTO) 0.6 K/uL (0.0-0.4); HEMATOCRIT 37.1 % (36-54); HEMOGLOBIN 12.6 g/dL (14.0-18.0); LYMPHOCYTES % (AUTO) 14.2 % (20.5-51.5); MEAN CORPUSCULAR HEMOGLOBIN 33 pg (27-31); MEAN CORPUSCULAR HGB CONC 34 % (32-36); MEAN CORPUSCULAR VOLUME 95 fL (79.0-98.0); MONOCYTES # (AUTO) 0.6 K/uL (0.0-1.0); MONOCYTES % (AUTO) 8.7 % (1.7-9.3); NEUTROPHILS # (AUTO) 4.5 K/uL (1.8-7.7); NEUTROPHILS % (AUTO) 67.6 % (40.0-70.0); PLATELET COUNT (AUTO) 154 K/uL (130-430); RED BLOOD CELL COUNT(AUTO) 3.89 MIL/uL (4.2-6.2); RED CELL DISTRIBUTION WIDTH 12.9 % (9.0-15.0); WHITE BLOOD COUNT (AUTO) 6.7 K/uL (4.8-10.8)
[2020-06-22] MEDS ORDERED: MELO15TA13 PO (17:18)
[2020-06-22] MEDS ORDERED: RISP1TAB7 PO (17:18)
[2020-06-22] MEDS ORDERED: DIVA250T PO (17:18)
[2020-06-22 17:23] LABS: PROTHROMBIN TIME 9.8 SECS (9.5-12.5)
[2020-06-22 17:27] LABS: ALANINE AMINOTRANSFERASE 38 U/L (12-78); ALBUMIN 3.1 g/dL (3.4-4.8); AMYLASE 57 U/L (0-100); ANION GAP 5 (5-15); ASPARTATE AMINOTRANSFERASE 40 U/L (10-37); CALCIUM 8.7 mg/dL (8.4-11.0); CHLORIDE 103 mmol/L (98-107); CREATININE 1.21 mg/dL (0.55-1.30); GLUCOSE 107 mg/dL (70-99); LACTATE DEHYDROGENASE 251 U/L (85-227); LIPASE 62 U/L (73-393); POTASSIUM 4.2 mmol/L (3.5-5.1); SODIUM SERUM 138 mmol/L (136-145); TOTAL BILIRUBIN 0.3 mg/dL (0.0-1.0); UREA NITROGEN, BLOOD 17 mg/dL (8-21)
[2020-06-22 17:39] LABS: BILIRUBIN,URINE NEGATIVE (NEGATIVE); BLOOD, URINE NEGATIVE (NEGATIVE); CLARITY/URINE CLEAR (CLEAR); COLOR,URINE YELLOW (YELLOW); GLUCOSE,URINE NEGATIVE (NEGATIVE); KETONES,URINE NEGATIVE (NEGATIVE); LEUKOCYTE ESTERASE ,URINE NEGATIVE (NEGATIVE); NITRITE, URINE NEGATIVE (NEGATIVE); PH,URINE 8.5 (5.0-8.0); PROTEIN URINE NEGATIVE (NEGATIVE); UROBILINOGEN,URINE 0.2 (0.2-1.0)
[2020-06-22 18:41] VITALS: BP_SYST 127
[2020-06-23] MEDS ORDERED: DICL100G19 TP (00:47)
[2020-06-23] MEDS ORDERED: MELO-89 PO (00:47)
[2020-06-23] MEDS ORDERED: [UNRECOGNIZED DRUG - CODE] PO (00:47)
[2020-06-23] MEDS ORDERED: ALBMDI INH (00:47)
[2020-06-23] MEDS ORDERED: BENZ-16 PO (00:47)
[2020-06-23] MEDS ORDERED: DIVA250T34 PO (00:47)
[2020-06-23] MEDS ORDERED: LISI-652 PO (00:47)
[2020-06-23] MEDS ORDERED: TAMS-11 PO (00:47)
[2020-06-23] MEDS ORDERED: DONE10TA4 PO (00:47)
[2020-06-23] MEDS ORDERED: NAPR-688 PO (00:47)
[2020-06-23] MEDS ORDERED: RISP1TAB27 PO (00:47)
[2020-06-23] MEDS ORDERED: KLO.5 PO (00:47)
[2020-06-23] MEDS ORDERED: ACET-2634 PO (00:47)
[2020-06-23] MEDS ORDERED: QUET50TA PO (00:47)
== END 2020-06-22 18:43 | disposition home or self-care (01) ==
LOC: SED 16:28
DX: R10.30 Lower abdominal pain, unspecified (principal); J45.909 Unspecified asthma, uncomplicated; K21.9 Gastro-esophageal reflux disease without esophagitis; Z79.899 Other long term (current) drug therapy
CPT/HCPCS: 36415; 76376; 80053; 81003; 82150-TC; 83605; 83615-TC; 83690-TC; 85025; 85610-TC; 85730-TC; 99284

== ENCOUNTER 2020-06-23 00:02 | Emergency (ER) | payer MEDICARE, SELFPAY ==
[~2020-06-23] VITALS: Ht 162.6 cm; Wt 72.6 kg
[2020-06-23 00:02] VITALS: BP_SYST 152
[~2020-06-23 00:02] MED LIST changes: +DIVA250T PO; +MELO15TA13 PO; +RISP1TAB7 PO
[2020-06-23] MEDS ORDERED: BENZ-16 PO (00:47)
[2020-06-23] MEDS ORDERED: RISP1TAB27 PO (00:47)
[2020-06-23] MEDS ORDERED: QUET50TA PO (00:47)
[2020-06-23] MEDS ORDERED: MELO-89 PO (00:47)
[2020-06-23] MEDS ORDERED: DICL100G19 TP (00:47)
[2020-06-23] MEDS ORDERED: LISI-652 PO (00:47)
[2020-06-23] MEDS ORDERED: DIVA250T34 PO (00:47)
[2020-06-23] MEDS ORDERED: [UNRECOGNIZED DRUG - CODE] PO (00:47)
[2020-06-23] MEDS ORDERED: ACET-2634 PO (00:47)
[2020-06-23] MEDS ORDERED: ALBMDI INH (00:47)
[2020-06-23] MEDS ORDERED: NAPR-688 PO (00:47)
[2020-06-23] MEDS ORDERED: DONE10TA4 PO (00:47)
[2020-06-23] MEDS ORDERED: KLO.5 PO (00:47)
[2020-06-23] MEDS ORDERED: TAMS-11 PO (00:47)
[2020-06-23 02:15] VITALS: BP_SYST 146
== END 2020-06-23 02:15 | disposition short-term general hospital (02) ==
LOC: SED 00:02
DX: R10.11 Right upper quadrant pain (principal); J45.909 Unspecified asthma, uncomplicated; K21.9 Gastro-esophageal reflux disease without esophagitis; Z88.1 Allergy status to other antibiotic agents; Z79.899 Other long term (current) drug therapy; Z20.822 Contact with and (suspected) exposure to COVID-19
CPT/HCPCS: 36415; 71045; 76705; 82272; 99285

== ENCOUNTER 2020-06-26 22:28 | Emergency (ER) | payer MEDICARE, SELFPAY ==
[~2020-06-26] VITALS: Ht 162.6 cm; Wt 72.6 kg
[~2020-06-26 22:28] MED LIST changes: +ACET-2634 PO; +ALBMDI INH; -AMOX500C2 PO; +BENZ-16 PO; -CLAR500T PO; +DICL100G19 TP; +DONE10TA4 PO; +KLO.5 PO; +LISI-652 PO; +MELO-89 PO; -MELO15TA13 PO; -METR500T PO; +NAPR-688 PO; -OMEP20CA15 PO; +QUET50TA PO; +RISP1TAB27 PO; -RISP1TAB7 PO; +TAMS-11 PO; +[UNRECOGNIZED DRUG - CODE] PO
[2020-06-26 22:30] VITALS: BP_SYST 142
[2020-06-27] MEDS ORDERED: NACL 0.9% 1,000 ML IV ONE
[2020-06-27 00:24] LABS: BASOPHILS # (AUTO) 0.1 K/uL (0.0-0.2); EOSINOPHILS # (AUTO) 0.5 K/uL (0.0-0.4); EOSINOPHILS % (AUTO) 8.8 % (0.0-4.0); HEMATOCRIT 33.8 % (36-54); HEMOGLOBIN 11.5 g/dL (14.0-18.0); LYMPHOCYTES # (AUTO) 1.3 K/uL (1.0-5.5); LYMPHOCYTES % (AUTO) 25.5 % (20.5-51.5); MEAN CORPUSCULAR HEMOGLOBIN 33 pg (27-31); MEAN CORPUSCULAR HGB CONC 34 % (32-36); MEAN CORPUSCULAR VOLUME 95 fL (79.0-98.0); MONOCYTES # (AUTO) 1.1 K/uL (0.0-1.0); MONOCYTES % (AUTO) 19.9 % (1.7-9.3); NEUTROPHILS # (AUTO) 2.4 K/uL (1.8-7.7); NEUTROPHILS % (AUTO) 44.8 % (40.0-70.0); PLATELET COUNT (AUTO) 173 K/uL (130-430); RED BLOOD CELL COUNT(AUTO) 3.55 MIL/uL (4.2-6.2); RED CELL DISTRIBUTION WIDTH 13.2 % (9.0-15.0); WHITE BLOOD COUNT (AUTO) 5.3 K/uL (4.8-10.8)
[2020-06-27 00:40] LABS: ANION GAP 6 (5-15); CALCIUM 8.5 mg/dL (8.4-11.0); CHLORIDE 105 mmol/L (98-107); CREATININE 1.08 mg/dL (0.55-1.30); GLUCOSE 96 mg/dL (70-99); POTASSIUM 3.7 mmol/L (3.5-5.1); SODIUM SERUM 139 mmol/L (136-145); UREA NITROGEN, BLOOD 26 mg/dL (8-21)
[2020-06-27 00:54] LABS: ALANINE AMINOTRANSFERASE 40 U/L (12-78); ALBUMIN 3.1 g/dL (3.4-4.8); ASPARTATE AMINOTRANSFERASE 33 U/L (10-37); THYROID STIMULATING HORMONE 5.44 uIu/mL (0.36-3.74); TOTAL BILIRUBIN 0.3 mg/dL (0.0-1.0)
[2020-06-27 02:21] LABS: BILIRUBIN,URINE NEGATIVE (NEGATIVE); BLOOD, URINE NEGATIVE (NEGATIVE); CLARITY/URINE CLEAR (CLEAR); COLOR,URINE YELLOW (YELLOW); GLUCOSE,URINE NEGATIVE (NEGATIVE); KETONES,URINE NEGATIVE (NEGATIVE); LEUKOCYTE ESTERASE ,URINE NEGATIVE (NEGATIVE); NITRITE, URINE NEGATIVE (NEGATIVE); PROTEIN URINE NEGATIVE (NEGATIVE); UROBILINOGEN,URINE 0.2 (0.2-1.0)
[2020-06-27 04:00] VITALS: BP_SYST 130
== END 2020-06-27 04:00 ==
LOC: SED 22:28
DX: D64.9 Anemia, unspecified (principal); E03.9 Hypothyroidism, unspecified; R53.1 Weakness; I10 Essential (primary) hypertension; J45.909 Unspecified asthma, uncomplicated; K21.9 Gastro-esophageal reflux disease without esophagitis; Z79.899 Other long term (current) drug therapy; Z88.1 Allergy status to other antibiotic agents; Z20.822 Contact with and (suspected) exposure to COVID-19
CPT/HCPCS: 36415; 71045; 80053; 84443; 81003; 84484; 85025; 87426; 93005; 96360; 96361; 99285; J7030

== ENCOUNTER 2020-08-15 13:13 | Emergency (ER) | payer MEDICARE, SELFPAY ==
[~2020-08-15] VITALS: Ht 167.6 cm; Wt 62.6 kg
[~2020-08-15 13:13] MED LIST changes: -RISP1TAB27 PO; +RISP1TAB44 PO
[2020-08-15 13:26] VITALS: BP_SYST 153
[2020-08-15 14:45] LABS: BASOPHILS # (AUTO) 0.1 K/uL (0.0-0.2); BASOPHILS % (AUTO) 1.3 % (0.0-2.0); EOSINOPHILS # (AUTO) 0.5 K/uL (0.0-0.4); HEMATOCRIT 38.6 % (36-54); HEMOGLOBIN 12.9 g/dL (14.0-18.0); LYMPHOCYTES # (AUTO) 1.1 K/uL (1.0-5.5); LYMPHOCYTES % (AUTO) 15.9 % (20.5-51.5); MEAN CORPUSCULAR HEMOGLOBIN 33 pg (27-31); MEAN CORPUSCULAR HGB CONC 34 % (32-36); MEAN CORPUSCULAR VOLUME 98 fL (79.0-98.0); MONOCYTES # (AUTO) 0.4 K/uL (0.0-1.0); NEUTROPHILS % (AUTO) 70.8 % (40.0-70.0); PLATELET COUNT (AUTO) 191 K/uL (130-430); RED BLOOD CELL COUNT(AUTO) 3.96 MIL/uL (4.2-6.2); RED CELL DISTRIBUTION WIDTH 13.9 % (9.0-15.0)
[2020-08-15 14:48] LABS: BILIRUBIN,URINE NEGATIVE (NEGATIVE); BLOOD, URINE NEGATIVE (NEGATIVE); CLARITY/URINE CLEAR (CLEAR); COLOR,URINE YELLOW (YELLOW); GLUCOSE,URINE NEGATIVE (NEGATIVE); KETONES,URINE NEGATIVE (NEGATIVE); LEUKOCYTE ESTERASE ,URINE NEGATIVE (NEGATIVE); NITRITE, URINE NEGATIVE (NEGATIVE); PROTEIN URINE NEGATIVE (NEGATIVE); UROBILINOGEN,URINE 0.2 (0.2-1.0)
[2020-08-15 14:56] LABS: ANION GAP 7 (5-15); CALCIUM 8.6 mg/dL (8.4-11.0); CHLORIDE 106 mmol/L (98-107); CREATININE 0.99 mg/dL (0.55-1.30); GLUCOSE 106 mg/dL (70-99); POTASSIUM 4.9 mmol/L (3.5-5.1); SODIUM SERUM 141 mmol/L (136-145); UREA NITROGEN, BLOOD 16 mg/dL (8-21)
[2020-08-15 15:11] LABS: ALANINE AMINOTRANSFERASE 33 U/L (12-78); ALBUMIN 3.7 g/dL (3.4-4.8); ASPARTATE AMINOTRANSFERASE 22 U/L (10-37); TOTAL BILIRUBIN 0.5 mg/dL (0.0-1.0)
[2020-08-15 15:57] VITALS: BP_SYST 142
== END 2020-08-15 15:57 | disposition home or self-care (01) ==
LOC: SED 13:13
DX: D64.9 Anemia, unspecified (principal); J45.909 Unspecified asthma, uncomplicated; K21.9 Gastro-esophageal reflux disease without esophagitis; Z79.899 Other long term (current) drug therapy; Z88.1 Allergy status to other antibiotic agents
CPT/HCPCS: 36415; 80053; 81003; 84484; 85025; 93005; 99284

== ENCOUNTER 2022-04-16 12:15 | Emergency (ER) | payer MEDICARE ==
[~2022-04-16] VITALS: Ht 157.5 cm; Wt 49.9 kg
[2022-04-16 12:21] VITALS: BP_SYST 122
[2022-04-16 12:52] LABS: BASOPHILS % (AUTO) 0.1 % (0.0-2.0); EOSINOPHILS % (AUTO) 0.2 % (0.0-4.0); HEMATOCRIT 34.8 % (36-54); HEMOGLOBIN 11.5 g/dL (14.0-18.0); LYMPHOCYTES # (AUTO) 0.6 K/uL (1.0-5.5); LYMPHOCYTES % (AUTO) 6.6 % (20.5-51.5); MEAN CORPUSCULAR HEMOGLOBIN 32 pg (27-31); MEAN CORPUSCULAR HGB CONC 33 % (32-36); MEAN CORPUSCULAR VOLUME 96 fL (79.0-98.0); MONOCYTES # (AUTO) 0.2 K/uL (0.0-1.0); MONOCYTES % (AUTO) 2.5 % (1.7-9.3); NEUTROPHILS % (AUTO) 90.6 % (40.0-70.0); PLATELET COUNT (AUTO) 277 K/uL (130-430); RED BLOOD CELL COUNT(AUTO) 3.61 MIL/uL (4.2-6.2); RED CELL DISTRIBUTION WIDTH 13.2 % (9.0-15.0); WHITE BLOOD COUNT (AUTO) 8.8 K/uL (4.8-10.8)
[2022-04-16 13:03] LABS: ANION GAP 13 (5-15); CHLORIDE 100 mmol/L (98-107); CREATININE 0.89 mg/dL (0.55-1.30); GLUCOSE 76 mg/dL (70-99); UREA NITROGEN, BLOOD 30 mg/dL (8-21)
[2022-04-16 13:12] LABS: ALANINE AMINOTRANSFERASE 33 U/L (12-78); ALBUMIN 2.7 g/dL (3.4-4.8); ASPARTATE AMINOTRANSFERASE 54 U/L (10-37); TOTAL BILIRUBIN 0.4 mg/dL (0.0-1.0)
[2022-04-16] MEDS ORDERED: DOXY100C5 PO (15:01)
[2022-04-16 19:00] VITALS: BP_SYST 122
== END 2022-04-16 19:00 | disposition home or self-care (01) ==
LOC: SED 12:15
DX: S01.01XA Laceration without foreign body of scalp, initial encounter (principal); J18.9 Pneumonia, unspecified organism; J45.909 Unspecified asthma, uncomplicated; K21.9 Gastro-esophageal reflux disease without esophagitis; Z88.1 Allergy status to other antibiotic agents; Z88.8 Allergy status to other drugs, medicaments and biological substances; Z79.899 Other long term (current) drug therapy; W18.39XA Other fall on same level, initial encounter; Y93.89 Activity, other specified; Y92.89 Other specified places as the place of occurrence of the external cause; Y99.8 Other external cause status
CPT/HCPCS: 36415; 70450-TC; 71045; 72125-TC; 76376; 80053; 83880; 84484; 85025; 93005; 99285